=== PATIENT | female | born 1965 | race Caucasian/White ===

== ENCOUNTER → 2022-11-18 09:03 | Outpatient (BNVA) | payer BC, SELFPAY | PROVIDERS: PCP Internal Medicine; Visit Provider Nurse Practitioner Family | DX: G44.85 Primary stabbing headache (principal); I95.9 Hypotension, unspecified; R20.2 Paresthesia of skin; D64.9 Anemia, unspecified; J44.9 Chronic obstructive pulmonary disease, unspecified ==

== ENCOUNTER → 2023-03-04 14:01 | Outpatient (BNVA) | payer BC, SELFPAY | PROVIDERS: Visit Provider Nurse Practitioner Family | DX: G44.85 Primary stabbing headache (principal); I95.9 Hypotension, unspecified; R20.2 Paresthesia of skin; D64.9 Anemia, unspecified; J44.9 Chronic obstructive pulmonary disease, unspecified; G43.709 Chronic migraine without aura, not intractable, without status migrainosus ==

== ENCOUNTER → 2023-06-17 14:02 | Outpatient (BNVA) | payer BC, SELFPAY | PROVIDERS: PCP Internal Medicine; Visit Provider Nurse Practitioner Family | DX: G44.85 Primary stabbing headache (principal); I95.9 Hypotension, unspecified; R20.2 Paresthesia of skin; D64.9 Anemia, unspecified; J44.9 Chronic obstructive pulmonary disease, unspecified; G43.709 Chronic migraine without aura, not intractable, without status migrainosus ==

== ENCOUNTER → 2023-09-16 13:26 | Outpatient (BNVA) | payer OTHER, SELFPAY | PROVIDERS: PCP Internal Medicine; Visit Provider Nurse Practitioner Family ==

== ENCOUNTER → 2024-01-19 09:01 | Outpatient (BNVA) | payer OTHER, SELFPAY | PROVIDERS: PCP Internal Medicine; Visit Provider Nurse Practitioner Family ==

== ENCOUNTER → 2024-08-02 13:12 | Outpatient (BNVA) | payer OTHER, SELFPAY | PROVIDERS: PCP Internal Medicine; Visit Provider Psychiatry & Neurology Neurology | DX: G43.709 Chronic migraine without aura, not intractable, without status migrainosus (principal) | CPT/HCPCS: 64615; 99211; J0585 ==

== ENCOUNTER 2024-11-08 14:52 | Outpatient (AMB) | payer OTHER, SELFPAY ==
--- NOTE | 2024-11-08 15:04 | MHC.OFFVIS ---
Vital Signs 11/08/24 15:06 Height 5 ft 5 in Weight 113 lb BMI 18.8 BP 94/66 Blood Pressure Location Rt brachial Position Sitting Pulse 89 Pulse Source Pulse Oximeter Pulse Oximetry (%) 100 Oxygen Delivery Method Room Air Intake Visit Reasons: BOTOX Intake Note: patient presents for botox injection. pharmacy supplied Allergies bacitracin [From Neosporin ([id number]-ote-pylrn)] Allergy (Unknown, Verified 11/08/24 15:09) Unknown neomycin [From Neosporin (ymb-prh-mzjda)] Allergy (Unknown, Verified 11/08/24 15:09) Unknown polymyxin B [From Neosporin (gia-ibd-pzuwn)] Allergy (Unknown, Verified 11/08/24 15:09) Unknown Sulfa (Sulfonamide Antibiotics) Allergy (Unknown, Verified 11/08/24 15:09) Unknown sulfadiazine Allergy (Unknown, Verified 11/08/24 15:09) Unknown adhesive Adverse Reaction (Unknown, Verified 11/08/24 15:09) Unknown Medication List - Last Reconciled 11/08/24 by Charito Zhou MD albuterol sulfate 90 mcg/actuation 0 mcg inhalation alprazolam 1 mg PO BID PRN 1 day amitriptyline 100 mg PO BEDTIME budesonide-formoterol 160-4.5 mcg/actuation 2 puffs inhalation BID dunaxpwmkk-nfrygfkrogvqh-ooqo 50-300-40 mg caps PO PRN carisoprodol 350 mg PO PRN celecoxib mg PO BID cyclobenzaprine 5 mg PO DAILY PRN cyclosporine 0.05% (Restasis) 1 drp ophthalmic (eye) Q12H diclofenac sodium 75 mg PO BID PRN 30 days escitalopram oxalate 5 mg PO DAILY [hair volume with apple extract PO DAILY] hydrocodone-acetaminophen 5-325 mg 1 tab PO Q4-6H PRN lorazepam 1 mg PO BID PRN magnesium oxide 400 mg PO DAILY melatonin 3 mg PO BEDTIME methocarbamol 750 - 1,500 mg PO TID PRN onabotulinumtoxinA (Botox) 200 units IM ONCE 12 weeks ondansetron 8 mg PO Q8H PRN 30 days ondansetron HCl 4 mg PO BID PRN oxcarbazepine (Trileptal) 150 mg PO BEDTIME 30 days oxycodone 5 mg PO BID PRN pantoprazole 40 mg PO DAILY riboflavin (vitamin B2) 400 mg PO DAILY secukinumab (Cosentyx Pen 300 mg/2 pens () 150 mg subcut Q4W simvastatin 20 mg PO BEDTIME tizanidine (Zanaflex) 4 mg PO DAILY PRN tramadol 50 mg PO BID PRN HPI Comments Details: ? 59y/o female comes for treatment of migraines with botox. How many migraine days prior to botox- 20 days a month How long do the migraines last- 1-2 days Intensity of migrainesevere 8-03/15 ER visits related to migraine- none Effectiveness of botox from last two treatment(s) How many migraine days since receiving treatment: Change? in intensity of migraine?decreased Change in frequency of migraine?decreased Change in use of acute medication for migraine?decreased use Change in quality of life?improved ER visits related to migraine?none Have at least three months elapsed since last treatment -yes ??? Most frequent reported adverse reactions following injection of botox for chronic migraine include neck pain (9%), headache(5%), eyelid ptosis(4%), migraine(4%), muscular weakness(4%), musculuskeletal stiffness(4%), bronchitis(3%), injection site pain (3%), musculoskeletal pain(3%), myalgia(3%), facial paresis(2%), HTN(2%) and muscle spasms(2%) were discussed in detail. A ??? Botulinum toxin typeA 200units Lot no [id number] expiration October 2026 was diluted with 4 cc of normal saline . ??? Muscles injected- ??? Frontalis 4 sites ??? Procerus 1 site ??? Head Banquet Waitress- 2 sites ??? Temporalis- 8 sites ??? Occipitalis- 6 sites ??? Cervical paraspinals- 4 sites ??? Trapezius- 6 sites- units each ??? 5 units each in 31 site ??? Total use- 155units ??? Discarded-45units [facility] Medical History Chronic migraine without aura, not intractable, without status migrainosus Arthritis HLD (hyperlipidemia) Osteoporosis Asthma COPD (chronic obstructive pulmonary disease) Anemia Paresthesias Surgical History H/O left wrist surgery H/O: hysterectomy Hx of cholecystectomy Hx of appendectomy Family History Paternal Aunt Parkinsons disease Father Heart disease Mother Heart disease Hypertension Social History Alcohol intake: current Alcohol intake frequency: holidays/special occasions only Patient Tobacco Use Status: Current everyday Tobacco user Physical Exam Vital Signs: Last Vital Signs Pulse 89 11/08/24 15:06 BP 94/66 11/08/24 15:06 Pulse Ox 100 11/08/24 15:06 Oxygen Delivery Method Room Air 11/08/24 15:06 BMI result Body Mass Index 18.8 Const General: cooperative and no acute distress Orientation/consciousness: patient oriented x3 Resp Effort & Inspection: normal respiratory effort and able to speak in complete sentences Neuro Other: No visible rest or postural tremor. General: patient oriented x3 Cranial nerves: Yes CN's II-XII intact bilaterally Cognition (Neuro): normal cognition Psych Appearance: grossly normal Mental Status: mental status grossly normal Speech and movement: Normal speech and movement present Affect: normal affect Attitude: cooperative Office Procedures Botulinum toxin Injection 85147 - Migraine Procedure code (CPT) selection complete Office Meds onabotulinumtoxinA 200 unit solution for injection Performing Provider: Charito Zhou MD Performing Location: [facility] Administered by: Charito Zhou MD on 11/08/24 15:31 Dose Route Admin Location Dispensed Lot Number Expiration Date [facility] Envelope Fold Operator 155 unit IM 200 units [id number] ALLERGAN/BOTOX Comments: see HPI Assessment & Plan Assessment & Plan (1) Chronic migraine without aura, not intractable, without status migrainosus: Code(s): G43.709 - Chronic migraine without aura, not intractable, without status migrainosus Category: Medical Plan Patient tolerated the procedure well she will call with any side effects Orders: Orders AMB Botulinum toxin Injection Today G43.709 - Chronic migraine without aura, not intractable, without status migrainosus Medications: New onabotulinumtoxinA 200 units IM ONCE 1 ea 0RF Migraine G43.709 - Chronic migraine without aura, not intractable, without status migrainosus Coding Level of Care Code Est Pt Level 1 (26830) Diagnoses Chronic migraine without aura, not intractable, without status migrainosus G43.709 CPT Codes Botox Injection - Botox 3: 03511 - Migraine ([id number])
[2024-11-08 15:06] VITALS: BP 94/66; PULSE 89; O2SAT 100; BMI 18.8
--- OUTSIDE RECORDS SUMMARY | 2024-11-08 16:07 | XMS_ITS | Encounter Summary ---
Author Organization [facility] Address [address] [place] [address] Care Team Providers Care Structural Engineering Project Manager Name Role Phone Augustine Lim DO Primary Care Provider Encounter Details Date Type Department Care Team (Late st Contact Info) Description 07/25/2024 Lab Requisition [facility] Main Lab [address] [facility] [place] [id number] Brittany Candelaria, GOLF TEACHER [address] [place] [phone] Acute vaginitis Social History Tobacco Use Types Packs/Day Years Used Date Smoking Tobacco: Every Day Cigarettes 1 24.3 Started: 07/06/2000 Smokeless Tobacco: Never Alcohol Use Standard Drinks/Week Comments Never 0 (1 standard drink = 0.6 oz pur e alcohol) Comments Unknown Sex and Gender Information Value Date Recorded Sex Assigned at Not on file Legal Sex Female 11:52 AM EST Gender Identity Not on file Sexual Orientation Not on file documented as of this encounter Plan of Treatment Not on file documented as of this encounter Procedures Procedure Name Priority Date/Time Associated Diagnosis Comments VAGINITIS PATHOGENS BY PCR Routine 07/25/2024 12:00 PM EST Acute vaginitis documented in this encounter Results * (ABNORMAL) Vaginitis pathogens molecular study (07/25/2024 12:00 PM EST) Trichomonas vaginalis Negative Negative 07/26/2024 9:35 AM EST [facility] Gardnerella vaginalis Positive(A) Negative 07/26/2024 9:35 AM EST [facility] Gem Species Negative Negative 9:35 AM [facility] Swab Vaginal structure / Unknown 07/25/2024 12:00 PM EST 07/25/2024 2:49 PM EST us Brittany Candelaria GOLF TEACHER LAB MICROBIOLOGY - GENE RAL ORDERABLES Final Result [facility] [address] [place] [address], documented in this encounter Visit Diagnoses Diagnosis Acute vaginitis Unspecified vaginitis and vulvovaginitis documented in this encounter Care Teams Structural Engineering Project Manager Relationship Specialty Start Date End Date Augustine Lim DO [address] [place] [phone] PCP - General Internal Medicine 09/10/18 documented as of this encounter
--- OUTSIDE RECORDS SUMMARY | 2024-11-08 16:07 | XMS_ITS | Clinical Summary ---
Author Organization [facility] Address [address] [place] [address] Care Team Providers Care Materials Scientist Name Role Phone Augustine Lim DO Primary Care Provider [phone] Social History Tobacco Use Types Packs/Day Years Used Date Smoking Tobacco: Never Assessed Sex and Gender Information Value Date Recorded Sex Assigned at Not on file Gender Identity Not on file Sexual Orientation Not on file Job Start Date Occupation Industry Not on file Not on file Not on file Plan of Treatment Health Maintenance Due Date Last Done Comments Hepatitis C Screening 1965 COVID-19 Vaccine (#1) 1963 Depression Screening 1975 Preventative Health Evaluation 1981 DTap / Tdap / Td (1 - Tdap) 1982 Cervical Cancer Screening (P ap Smear) 02/19/1984 Colon Cancer Screening (Colonoscopy) 02/19/2008 Breast Cancer Screening (Mammogram) 2013 Shingrix-Zoster Vaccine (1 of 2) 2013 Influenza Vaccine (#1) 2024 RSV Adult > 60+ Yrs or Pregn ant (1 - 1-dose 75+ series) 2038 Hepatitis B Vaccines Aged Out No long er eligible based on patient's age to complete this topic Pneumococcal Vaccine Aged Out No long er eligible based on patient's age to complete this topic RSV Ped < 20 months Aged Out No longe r eligible based on patient's age to complete this topic Care Teams Materials Scientist Relationship Specialty Start Date End Date Augustine Lim DO [address] [place] [phone] PCP - General Internal Medicine 07/15/16
--- OUTSIDE RECORDS SUMMARY | 2024-11-08 16:07 | XMS_ITS | Continuity of Care Document ---
Author Organization [facility] [address] [place] [address] Phone [phone] Care Team Providers Care Swing Frame Grinder Operator Name Role Phone Augustine Lim M.D. Care Team Information [facility] [phone] Social History Type Date Description Comments Sex Unknown Medical Devices Description No Information Available Encounters Description No Information Available Assessments Description No Information Available Plan of Treatment No Information Available Functional Status Description No Information Available Mental Status Description No Information Available Referrals Description No Information Available
--- OUTSIDE RECORDS SUMMARY | 2024-11-08 16:08 | XMS_ITS | Clinical Summary ---
Author Organization [address] [facility] Address [address] [place] [address] Phone Care Team Providers Care Research Pharmacist Name Role Phone Augustine Lim Primary Care Provider [phone] Surgical History Surgery Date Site/Laterality Comments HYSTERECTOMY PROCEDURE: HISTORICAL HYSTERECTOMY CHOLECYSTECTOMY PROCEDURE: AR LAPAROSCOPY SURG CHOLECYSTECTOMY APPENDECTOMY PROCEDURE: AR APPENDECTOMY COLONOSCOPY PROCEDURE: HISTORICAL COLONOSCOPY Medical History Medical History Date Comments Anxiety state DX:Anxiety state Asthma DX:Asthma Cervical spondylosis without myelopathy DX:Cervical spondylosis without myelopathy Bronchitis DX:Bronchitis Esophageal reflux DX:Esophageal reflux Hyperlipidemia DX:Hyperlipidemi a Family History Medical History Relation Name Comments Coronary artery disease Father Coronary artery disease Mother Relation Name Status Comments Father Mother Social History Tobacco Use Types Packs/Day Years [...] on file Sexual Orientation Not on file Obstetrics History Last Filed Vital Signs Vital Sign Reading Time Taken Comments Blood Pressure 105/78 03/26/2023 7:50 AM EDT Sit ting L Arm Pulse 89 03/26/2023 7:50 AM EDT Temperature - - Respiratory Rate - - Oxygen Saturation - - Inhaled Oxygen Concentration - - Weight 48.5 kg (107 lb) 03/26/2023 7:50 AM EDT Height 165.1 cm (5' 5 ) 03/26/2023 7:50 AM EDT Body Mass Index 17.81 03/26/2023 7:50 AM EDT Plan of Treatment Health Maintenance Due Date Last Done Comments Breast Cancer Screening 1965 Pneumococcal Vaccine: 50+ Years (1 of 2 - PCV) 1982 Pneumococcal Vaccine: Pediatrics (0 to 5 Years) and At-Risk Patients (6 to 64 Years) (1 of 2 - PCV) 1982 Cervical Cancer Screening: P ap Smear 02/19/1984 Zoster Vaccines (1 of 2) 2013 Colorectal Cancer Screening: Colonoscopy 06/14/2022 Depression Screening 06/14/2022 HIV Screening 06/14/2022 Hepatitis C Screening 06/14/2022 Osteoporosis Screening (Bone Density Screening) 06/14/2022 Social Influencers of Health Screening 06/14/2022 RSV Immunization Adult Patients (1 - Risk 60-74 years 1-dose series) 2023 COVID-19 Vaccine (4 - 2023-2 5 season) 2024 10/27/2021, 02/25/2021, 02/04/2021 Influenza Vaccine (Season Ended) 2025 04/15/2021, 05/02/2020, 03/19/2017 Cholesterol Screening (Lipid Panel) 07/25/2029 07/25/2024 DTaP,Tdap,and Td Vaccines (2 - Td or Tdap) 09/17/2031 09/16/2021 HIB Vaccines Aged Out No longer eligi ble based on patient's age to complete this topic HPV Vaccines Aged Out No longer eligi ble based on patient's age to complete this topic Hepatitis A Vaccines Aged Out No long er eligible based on patient's age to complete this topic Hepatitis B Vaccines Aged Out No long er eligible based on patient's age to complete this topic IPV Vaccines Aged Out No longer eligi ble based on patient's age to complete this topic MMR Vaccines Aged Out No longer eligi ble based on patient's age to complete this topic Meningococcal ACWY Vaccine Aged Out N o longer eligible based on patient's age to complete this topic Meningococcal B Vaccine Aged Out No l onger eligible based on patient's age to complete this topic RSV Immunization Patients Under 20 months Aged Out No longer eligible b ased on patient's age to complete this topic Varicella Vaccines Aged Out No longer eligible based on patient's age to complete this topic Procedures Procedure Name Priority Date/Time Associated Diagnosis Comments LIPID PANEL WITH REFLEX TO DIRECT LDL Routine 07/25/2024 12:41 PM EST Hyperlipemia Vanishing lung (CMS/HCC V24, CMS/HCC V28) Senile osteoporosis Esophageal reflux from Last 3 Months or Most Recently Relevant to Health Maintenance Results * (ABNORMAL) Lipid panel with reflex to direct LDL (07/25/2024 12:41 PM EST) Cholesterol 204(H) 0 - 200 mg/dL LAB CHEMISTRY METHOD 07/25/2024 4:[address] [facility] Triglycerides 116 0 - 150 mg/dL LAB CHEMISTRY METHOD 07/25/2024 4:24 PM [facility] HDL 61 >=40 mg/dL LAB CHEMISTRY METHOD 07/25/2024 4:[address] [facility] LDL Calculated 120(H) 0 - 100 mg/dL LAB CHEMISTRY METHOD 07/25/2024 4:[address] [facility] VLDL Cholesterol Teto 23.2 mg/dL LAB CHEMISTRY METHOD 07/25/2024 4:[address] [facility] Non HDL Chol. (LDL+VLDL) 143 <145 mg/dL LAB CHEMISTRY METHOD 07/25/2024 4:[address] [facility] Chol/HDL Ratio 3.3 0.0 - 4.4 LAB CHEMISTRY METHOD 07/25/2024 4:[address] [facility] Blood Venous blood specimen / Unknown Venipuncture / Unknown 07/25/2024 12:41 PM EST 07/25/2024 12:41 PM EST us Brittany Candelaria NP LAB BLOOD ORDERABLES Fi nal Result [facility] [address] [place] [address], [place] [phone] from Last 3 Months or Most Recently Relevant to Health Maintenance Insurance [facility] [place] [id number] Care Teams Research Pharmacist Relationship Specialty Start Date End Date Augustine Lim DO [address] [place] [phone] PCP - General Internal Medicine 09/10/18
== END 2024-11-08 15:45 | disposition home or self-care (01) ==
LOC: HO.HSMS 14:55
PROVIDERS: PCP Internal Medicine; Visit Provider Psychiatry & Neurology Neurology
DX: G43.709 Chronic migraine without aura, not intractable, without status migrainosus (principal)
CPT/HCPCS: 64615

== ENCOUNTER → 2024-11-08 14:52 | Outpatient (BNVA) | payer OTHER, SELFPAY | PROVIDERS: PCP Internal Medicine; Visit Provider Psychiatry & Neurology Neurology | DX: G43.709 Chronic migraine without aura, not intractable, without status migrainosus (principal) | CPT/HCPCS: 64615; 99211; J0585 ==

== ENCOUNTER 2025-01-31 10:51 | Outpatient (AMB) | payer OTHER, SELFPAY ==
--- NOTE | 2025-01-31 10:58 | MHC.OFFVIS ---
Vital Signs 01/31/25 11:08 Height 5 ft 5 in Weight 111 lb 4 oz BMI 18.5 BP 90/68 Blood Pressure Location Rt brachial Position Sitting Pulse 103 H Pulse Source Pulse Oximeter Pulse Oximetry (%) 100 Oxygen Delivery Method Room Air Intake Visit Reasons: BOTOX Tape Cutting Machine Operator Required: No Accompanied by: Self / Same As Patient Allergies bacitracin (From Neosporin (aca-prm-nakgc)) Allergy (Unknown, Verified 11/08/24 15:09) Unknown neomycin (From Neosporin (bqg-hug-mlydf)) Allergy (Unknown, Verified 11/08/24 15:09) Unknown polymyxin B (From Neosporin (zaq-xnb-vgpru)) Allergy (Unknown, Verified 11/08/24 15:09) Unknown Sulfa (Sulfonamide Antibiotics) Allergy (Unknown, Verified 11/08/24 15:09) Unknown sulfadiazine Allergy (Unknown, Verified 11/08/24 15:09) Unknown adhesive Adverse Reaction (Unknown, Verified 11/08/24 15:09) Unknown Medication List - Last Reconciled 01/31/25 by Charito Zhou MD albuterol sulfate 90 mcg/actuation 0 mcg inhalation alprazolam 1 mg PO BID PRN 1 day amitriptyline 100 mg PO BEDTIME budesonide-formoterol 160-4.5 mcg/actuation 2 puffs inhalation BID endsovmgye-zatwvdrscvlpa-qfja 50-300-40 mg caps PO PRN carisoprodol 350 mg PO PRN celecoxib mg PO BID cyclobenzaprine 5 mg PO DAILY PRN cyclosporine 0.05% (Restasis) 1 drp ophthalmic (eye) Q12H diclofenac sodium 75 mg PO BID PRN 30 days escitalopram oxalate 5 mg PO DAILY [hair volume with apple extract PO DAILY] hydrocodone-acetaminophen 5-325 mg 1 tab PO Q4-6H PRN lorazepam 1 mg PO BID PRN magnesium oxide 400 mg PO DAILY melatonin 3 mg PO BEDTIME methocarbamol 750 - 1,500 mg PO TID PRN onabotulinumtoxinA (Botox) 200 units IM ONCE 12 weeks ondansetron 8 mg PO Q8H PRN 30 days ondansetron HCl 4 mg PO BID PRN oxcarbazepine (Trileptal) 150 mg PO BEDTIME 30 days oxycodone 5 mg PO BID PRN pantoprazole 40 mg PO DAILY riboflavin (vitamin B2) 400 mg PO DAILY secukinumab (Cosentyx Pen 300 mg/2 pens () 150 mg subcut Q4W simvastatin 20 mg PO BEDTIME tizanidine (Zanaflex) 4 mg PO DAILY PRN tramadol 50 mg PO BID PRN HPI Comments Details: ? 59y/o female comes for treatment of migraines with botox. How many migraine days prior to botox- 20 days a month How long do the migraines last- 1-2 days Intensity of migrainesevere 8-03/15 ER visits related to migraine- none Effectiveness of botox from last two treatment(s) How many migraine days since receiving treatment: Change? in intensity of migraine?decreased Change in frequency of migraine?decreased Change in use of acute medication for migraine?decreased use Change in quality of life?improved ER visits related to migraine?none Have at least three months elapsed since last treatment -yes ??? Most frequent reported adverse reactions following injection of botox for chronic migraine include neck pain (9%), headache(5%), eyelid ptosis(4%), migraine(4%), muscular weakness(4%), musculuskeletal stiffness(4%), bronchitis(3%), injection site pain (3%), musculoskeletal pain(3%), myalgia(3%), facial paresis(2%), HTN(2%) and muscle spasms(2%) were discussed in detail. A ??? Botulinum toxin typeA 200units Lot no [id number] expiration Aug 2027 was diluted with 4 cc of normal saline . ??? Muscles injected- ??? Frontalis 4 sites ??? Procerus 1 site ??? Craps Manager- 2 sites ??? Temporalis- 8 sites ??? Occipitalis- 6 sites ??? Cervical paraspinals- 4 sites ??? Trapezius- 6 sites- units each ??? 5 units each in 31 site ??? Total use- 155units ??? Discarded-45units [facility] Medical History Chronic migraine without aura, not intractable, without status migrainosus Arthritis HLD (hyperlipidemia) Osteoporosis Asthma COPD (chronic obstructive pulmonary disease) Anemia Paresthesias Surgical History H/O left wrist surgery H/O: hysterectomy Hx of cholecystectomy Hx of appendectomy Family History Paternal Aunt Parkinsons disease Father Heart disease Mother Heart disease Hypertension Social History Alcohol intake: current Alcohol intake frequency: holidays/special occasions only Patient Tobacco Use Status: Current everyday Tobacco user Physical Exam Vital Signs: Last Vital Signs Pulse 103 H 01/31/25 11:08 BP 90/68 01/31/25 11:08 Pulse Ox 100 01/31/25 11:08 Oxygen Delivery Method Room Air 01/31/25 11:08 BMI result Body Mass Index 18.5 Const General: cooperative and no acute distress Orientation/consciousness: patient oriented x3 Resp Effort & Inspection: normal respiratory effort and able to speak in complete sentences Neuro Other: No visible rest or postural tremor. General: patient oriented x3 Cranial nerves: Yes CN's II-XII intact bilaterally Cognition (Neuro): normal cognition Psych Appearance: grossly normal Mental Status: mental status grossly normal Speech and movement: Normal speech and movement present Affect: normal affect Attitude: cooperative Office Procedures Botulinum toxin Injection 56401 - Migraine Procedure code (CPT) selection complete Office Meds onabotulinumtoxinA 200 unit solution for injection Performing Provider: Charito Zhou MD Performing Location: [facility] Administered by: Charito Zhou MD on 01/31/25 13:21 Dose Route Admin Location Dispensed Lot Number Expiration Date [facility] Mobile Application Tester 155 unit subcut 200 units [id number] ALLERGAN/BOTOX Total Dispensed Waste 200 units 22.5 % Comments: see HPI Assessment & Plan Assessment & Plan (1) Chronic migraine without aura, not intractable, without status migrainosus: Code(s): G43.709 - Chronic migraine without aura, not intractable, without status migrainosus Category: Medical Plan Patient tolerated the procedure well she will call with any side effects Orders: Orders AMB Botulinum toxin Injection Today G43.709 - Chronic migraine without aura, not intractable, without status migrainosus Coding Level of Care Code Est Pt Level 1 (76410) Diagnoses Chronic migraine without aura, not intractable, without status migrainosus G43.709 CPT Codes Botox Injection - Botox 3: 91395 - Migraine ([id number])
[2025-01-31 11:08] VITALS: BP 90/68; PULSE 103; O2SAT 100; BMI 18.5
== END 2025-01-31 11:37 | disposition home or self-care (01) ==
LOC: HO.HSMS 10:52
PROVIDERS: PCP Internal Medicine; Visit Provider Psychiatry & Neurology Neurology
DX: G43.709 Chronic migraine without aura, not intractable, without status migrainosus (principal)
CPT/HCPCS: 64615

== ENCOUNTER → 2025-01-31 10:51 | Outpatient (BNVA) | payer OTHER, SELFPAY | PROVIDERS: PCP Internal Medicine; Visit Provider Psychiatry & Neurology Neurology | DX: G43.709 Chronic migraine without aura, not intractable, without status migrainosus (principal); E78.5 Hyperlipidemia, unspecified; M81.0 Age-related osteoporosis without current pathological fracture; J44.9 Chronic obstructive pulmonary disease, unspecified; D64.9 Anemia, unspecified; R20.2 Paresthesia of skin; F17.210 Nicotine dependence, cigarettes, uncomplicated | CPT/HCPCS: 64615; 99211; J0585 ==

== ENCOUNTER 2025-02-01 13:23 | Outpatient (AMB) | payer OTHER, SELFPAY ==
--- NOTE | 2025-02-01 13:31 | MHC.OFFVIS ---
Vital Signs 02/01/25 13:43 Height 5 ft 5 in BP 104/76 Blood Pressure Location Lt brachial Position Sitting Pulse 90 Pulse Source Pulse Oximeter Pulse Oximetry (%) 96 Oxygen Delivery Method Room Air Intake Visit Reasons: Follow up 6mo Intake Note: Patient presents follow up migraine medication. Labs in chart. Since receiving Botox she is getting about 2-3 Migraines per month.(depending on weather). Fiorocet helps when does get them. Accompanied by: Self / Same As Patient Allergies bacitracin (From Neosporin (uao-lnq-hahyh)) Allergy (Unknown, Verified 02/01/25 13:44) Unknown neomycin (From Neosporin (ioi-jnr-iabgx)) Allergy (Unknown, Verified 02/01/25 13:44) Unknown polymyxin B (From Neosporin (ztr-jvh-jnuma)) Allergy (Unknown, Verified 02/01/25 13:44) Unknown Sulfa (Sulfonamide Antibiotics) Allergy (Unknown, Verified 02/01/25 13:44) Unknown sulfadiazine Allergy (Unknown, Verified 02/01/25 13:44) Unknown adhesive Adverse Reaction (Unknown, Verified 02/01/25 13:44) Unknown Medication List - Last Reconciled 02/01/25 by DAVID Alonzo albuterol sulfate 90 mcg/actuation 0 mcg inhalation alprazolam 1 mg PO BID PRN 1 day amitriptyline 100 mg PO BEDTIME budesonide-formoterol 160-4.5 mcg/actuation 2 puffs inhalation BID kqznevqwjk-dtqdfdywskhna-mwvc 50-300-40 mg caps PO PRN carisoprodol 350 mg PO PRN celecoxib mg PO BID cyclobenzaprine 5 mg PO DAILY PRN cyclosporine 0.05% (Restasis) 1 drp ophthalmic (eye) Q12H diclofenac sodium 75 mg PO BID PRN 30 days escitalopram oxalate 5 mg PO DAILY [hair volume with apple extract PO DAILY] hydrocodone-acetaminophen 5-325 mg 1 tab PO Q4-6H PRN lorazepam 1 mg PO BID PRN magnesium oxide 400 mg PO DAILY melatonin 3 mg PO BEDTIME methocarbamol 750 - 1,500 mg PO TID PRN onabotulinumtoxinA (Botox) 200 units IM ONCE 12 weeks ondansetron 8 mg PO Q8H PRN 30 days ondansetron HCl 4 mg PO BID PRN oxcarbazepine (Trileptal) 150 mg PO BEDTIME 30 days oxycodone 5 mg PO BID PRN pantoprazole 40 mg PO DAILY riboflavin (vitamin B2) 400 mg PO DAILY secukinumab (Cosentyx Pen 300 mg/2 pens () 150 mg subcut Q4W simvastatin 20 mg PO BEDTIME tizanidine (Zanaflex) 4 mg PO DAILY PRN tramadol 50 mg PO BID PRN HPI Comments Details: 59-yr-old female presents for f/u visit of migraine and stabbing headache. Pt denies any significant interval medical changes. Her neck pain is somewhat better- just had cervical injections through [facility] last week. Tremor is better, but when she has a breakthrough episode the tremor will be strong for a few hours to a 1/2-1 day. Continues to be f/b PS&S for management for management of her chronic neck pain. Pt reports that the Botox for her chronic migraine has been very helpful. Pt reports she has about 3 migraine days in the last month. Continues to have episodes of crown of head allodynia. Uses fioricet prn, w/ positive effect. Ice on her head can help and cool pack on her eyes does help. She reports the stabbing head pains, now varies, more so on the left side- are a bit better. She tried the trileptal- caused increased headaches and shakiness. Baseline migraine headache characteristics: Top of head, pressure. A/w photophobia, phonophobia, osmophobia. N/V, dizziness, may see black spots. No paresthesias, focal weakness, autonomic features. She is more prone to migraine in the spring and fall, as well as barometric changes. [facility] Medical History Chronic migraine without aura, not intractable, without status migrainosus Arthritis HLD (hyperlipidemia) Osteoporosis Asthma COPD (chronic obstructive pulmonary disease) Anemia Paresthesias Surgical History H/O left wrist surgery H/O: hysterectomy Hx of cholecystectomy Hx of appendectomy Family History Paternal Aunt Parkinsons disease Father Heart disease Mother Heart disease Hypertension Social History Alcohol intake: current Alcohol intake frequency: holidays/special occasions only Patient Tobacco Use Status: Current everyday Tobacco user Physical Exam Vital Signs: Last Vital Signs Pulse 90 02/01/25 13:43 BP 104/76 02/01/25 13:43 Pulse Ox 96 02/01/25 13:43 Oxygen Delivery Method Room Air 02/01/25 13:43 Const General: cooperative and no acute distress Orientation/consciousness: patient oriented x3 Resp Effort & Inspection: normal respiratory effort and able to speak in complete sentences Neuro Other: No visible rest or postural tremor. General: patient oriented x3 Cranial nerves: Yes CN's II-XII intact bilaterally Cognition (Neuro): normal cognition Psych Appearance: grossly normal Mental Status: mental status grossly normal Speech and movement: Normal speech and movement present Affect: normal affect Attitude: cooperative Assessment & Plan Assessment & Plan (1) Stabbing headache: Comment: w/o autonomic s/s Code(s): G44.85 - Primary stabbing headache Category: Medical (2) Tremors of nervous system: Code(s): R25.1 - Tremor, unspecified Category: Medical (3) Chronic migraine without aura, not intractable, without status migrainosus: Code(s): G43.709 - Chronic migraine without aura, not intractable, without status migrainosus Category: Medical Plan For general headache management: Pt may benefit from trying a migraine ice/cooling cap. Try increasing water aerobic type exercises- pt does has a boat and has access to water. For stabbing headache: Continue to hold previous order for Brain/head MRA- was deneid by insurance. Discontinue oxcarbazepine 150 mg q.h.s- not tolerated- caused tremor and increased headache. For acute migraine headache treatment: May continue Fioricet prn for now- pt asks for longer supply as she has 2 houses- continue to use sparingly. Continue Zofran to 8mg ODT prn N?V Previous acute migraine medication trials: Sumatriptan, Zolmitriptan, Eletriptan- caused racing heart rate. Acute migraine medication contraindications: None at this time. Future considerations- gepant- however would need to wean off Fioricet. ? For migraine headache prevention medication: Continue Riboflavin 400mg qam Continue Magnesium 400mg qhs Continue Amitriptyline 100mg qhs. Continue Botox 155 units IM q 12 weeks (CPT 17394), as pt is already having good clinical effect. Previous migraine prevention medication trials: Emgality- x's 2 months- had 2 week post-injection headache. Topiramate, Propranolol, Depakote, Gabapentin- ineffective. Duloxetine- not tolerated. Nortriptyline worsened headache. Migraine prevention medication contraindications: Would avoid Aimovig d/t h/o constipation. Monitor tremors clinically for now. ? F/u in 6 months or sooner prn. Medications: Changed From gvykfzljpg-xxwcuvpwzhpiv-xoxg 50-300-40 mg PO PRN To tbxtcmxivo-znnqdowxvquiv-qekk 50-300-40 mg 1 cap PO Q4H PRN 90 caps 0RF tension headache 90 days Discontinued oxcarbazepine (Trileptal) Discontinued Reason: Doctor's Order 150 mg PO BEDTIME 30 days 30 tabs 3RF Coding Level of Care Code Est Pt Level 4 (51260) Diagnoses Stabbing headache G44.85 Tremors of nervous system R25.1 Chronic migraine without aura, not intractable, without status migrainosus G43.709
[2025-02-01 13:43] VITALS: BP 104/76; PULSE 90; O2SAT 96
--- OUTSIDE RECORDS SUMMARY | 2025-02-01 13:56 | XMS_ITS | Clinical Summary ---
Author Organization [facility] Address [address] [place] [address] Care Team Providers Care Supervisor Jewelry Department Name Role Phone Augustine Lim DO Primary Care Provider [phone] Social History Tobacco Use Types Packs/Day Years [...] (1 of 2) 2013 Influenza Vaccine (#1) 2025 RSV Adult > 60+ Yrs or Pregn [...] age to complete this topic Care Teams Supervisor Jewelry Department Relationship Specialty Start Date End Date Augustine Lim DO [address] [place] [id number] PCP - General Internal Medicine 07/15/16
--- OUTSIDE RECORDS SUMMARY | 2025-02-01 13:56 | XMS_ITS | Continuity of Care Document ---
Author Organization [facility] [address] [place] [address] Phone [phone] Care Team Providers Care Military Source Operations Specialist Name Role Phone Augustine Lim M.D. Care Team Information [facility] [phone] Social History Type Date Description Comments Sex Female Sex Unknown Medical Devices Description No Information Available Encounters Description No Information Available Assessments Description No Information Available Plan of Treatment No Information Available Functional Status Description No Information Available Mental Status Description No Information Available Referrals Description No Information Available
--- OUTSIDE RECORDS SUMMARY | 2025-02-01 13:56 | XMS_ITS | Encounter Summary ---
Author Organization [facility] Address [address] [place] [address] Care Team Providers Care Duct Layer Supervisor Name Role Phone Augustine Lim DO Primary Care Provider [phone] Encounter Details Date Type Department Care Team (Late st Contact Info) Description 07/25/2024 Lab Requisition [facility] [address] [place] [phone] Brittany Candelaria, PRIVATE MORTGAGE BANKER [employer] [address] [place] [phone] Acute vaginitis Social History Tobacco Use Types Packs/Day Years Used Date Smoking Tobacco: Every Day Cigarettes 1 24.6 Started: 07/06/2000 Smokeless Tobacco: Never Alcohol Use [...] vaginalis Negative Negative 07/26/2024 9:35 AM EST [facility] Gardnerella vaginalis Positive(A) Negative 07/26/2024 9:35 AM EST [facility] Gem Species Negative Negative 9:35 AM [facility] Swab Vaginal structure / Unknown 07/25/2024 12:00 PM EST 07/25/2024 2:49 PM EST us Brittany Candelaria [employer] LAB MICROBIOLOGY - GENE RAL ORDERABLES Final Result [facility] [address] [place] [address], documented in this encounter Visit Diagnoses Diagnosis Acute vaginitis Unspecified vaginitis and vulvovaginitis documented in this encounter Care Teams Duct Layer Supervisor Relationship Specialty Start Date End Date Augustine Lim DO [address] [place] [phone] PCP - General Internal Medicine 09/10/18 documented as of this encounter
--- OUTSIDE RECORDS SUMMARY | 2025-02-01 13:56 | XMS_ITS ---
Author Name [facility] Organization Unknown Care Team Organization Name Specialty Phone Email Start Date End Da te [facility] Jeromy Rodriguez Primary Care 05/13/2022 02/22/2024
== END 2025-02-01 14:26 | disposition home or self-care (01) ==
LOC: HO.HSMS 13:24
PROVIDERS: PCP Internal Medicine; Visit Provider Nurse Practitioner Family
DX: G44.85 Primary stabbing headache (principal); R25.1 Tremor, unspecified; G43.709 Chronic migraine without aura, not intractable, without status migrainosus
CPT/HCPCS: 99214

== ENCOUNTER 2025-04-25 10:01 | Outpatient (AMB) | payer OTHER, SELFPAY ==
--- NOTE | 2025-04-25 10:02 | MHC.OFFVIS ---
Vital Signs 04/25/25 10:03 Height 5 ft 5 in Weight 108 lb 2 oz BMI 18.0 BP 118/80 Blood Pressure Location Rt brachial Position Sitting Pulse 94 Pulse Source Pulse Oximeter Pulse Oximetry (%) 97 Oxygen Delivery Method Room Air Intake Visit Reasons: 3mon Botox f/u Intake Note: Botox Epitaxial Reactor Operator Required: No Accompanied by: Self / Same As Patient Allergies bacitracin (From Neosporin (ife-ffk-wljmy)) Allergy (Unknown, Verified 04/25/25 10:02) Unknown neomycin (From Neosporin (eat-mma-qxzdy)) Allergy (Unknown, Verified 04/25/25 10:02) Unknown polymyxin B (From Neosporin (usj-giz-cteft)) Allergy (Unknown, Verified 04/25/25 10:02) Unknown Sulfa (Sulfonamide Antibiotics) Allergy (Unknown, Verified 04/25/25 10:02) Unknown sulfadiazine Allergy (Unknown, Verified 04/25/25 10:02) Unknown adhesive Adverse Reaction (Unknown, Verified 04/25/25 10:02) Unknown Medication List - Last Reconciled 04/25/25 by Charito Zhou MD albuterol sulfate 90 mcg/actuation 0 mcg inhalation alprazolam 1 mg PO BID PRN 1 day amitriptyline 100 mg PO BEDTIME budesonide-formoterol 160-4.5 mcg/actuation 2 puffs inhalation BID bupropion HCl XL 150 mg PO QAM tlmkicrgmq-hondtkutcahqr-siih 50-300-40 mg 1 cap PO Q4H PRN 90 days carisoprodol 350 mg PO PRN celecoxib mg PO BID cyclobenzaprine 5 mg PO DAILY PRN cyclosporine 0.05% (Restasis) 1 drp ophthalmic (eye) Q12H diclofenac sodium 75 mg PO BID PRN 30 days escitalopram oxalate 5 mg PO DAILY hydrocodone-acetaminophen 5-325 mg 1 tab PO Q4-6H PRN lorazepam 1 mg PO BID PRN magnesium oxide 400 mg PO DAILY melatonin 3 mg PO BEDTIME methocarbamol 750 - 1,500 mg PO TID PRN onabotulinumtoxinA (Botox) 200 units IM ONCE 12 weeks ondansetron HCl 4 mg PO BID PRN oxycodone 5 mg PO BID PRN pantoprazole 40 mg PO DAILY riboflavin (vitamin B2) 400 mg PO DAILY secukinumab (Cosentyx Pen 300 mg/2 pens () 150 mg subcut Q4W simvastatin 20 mg PO BEDTIME tizanidine (Zanaflex) 4 mg PO DAILY PRN tramadol 50 mg PO BID PRN HPI Comments Details: ? 60y/o female comes for treatment of migraines with botox. How many migraine days prior to botox- 20 days a month How long do the migraines last- 1-2 days Intensity of migrainesevere 8-03/15 ER visits related to migraine- none Effectiveness of botox from last two treatment(s) How many migraine days since receiving treatment: Change? in intensity of migraine?decreased Change in frequency of migraine?decreased Change in use of acute medication for migraine?decreased use Change in quality of life?improved ER visits related to migraine?none Have at least three months elapsed since last treatment -yes ??? Most frequent reported adverse reactions following injection of botox for chronic migraine include neck pain (9%), headache(5%), eyelid ptosis(4%), migraine(4%), muscular weakness(4%), musculuskeletal stiffness(4%), bronchitis(3%), injection site pain (3%), musculoskeletal pain(3%), myalgia(3%), facial paresis(2%), HTN(2%) and muscle spasms(2%) were discussed in detail. ??? Botulinum toxin typeA 200units Lot no [id number] expiration Jun 2027 was diluted with 4 cc of normal saline . ??? Muscles injected- ??? Frontalis 4 sites ??? Procerus 1 site ??? Tool Grinding Machine Operator- 2 sites ??? Temporalis- 8 sites ??? Occipitalis- 6 sites ??? Cervical paraspinals- 4 sites ??? Trapezius- 6 sites- units each ??? 5 units each in 31 site ??? Total use- 155units ??? Discarded-45units [facility] Medical History Chronic migraine without aura, not intractable, without status migrainosus Arthritis HLD (hyperlipidemia) Osteoporosis Asthma COPD (chronic obstructive pulmonary disease) Anemia Paresthesias Surgical History H/O left wrist surgery H/O: hysterectomy Hx of cholecystectomy Hx of appendectomy Family History Paternal Aunt Parkinsons disease Father Heart disease Mother Heart disease Hypertension Social History Alcohol intake: current Alcohol intake frequency: holidays/special occasions only Patient Tobacco Use Status: Current everyday Tobacco user Physical Exam Vital Signs: Last Vital Signs Pulse 94 04/25/25 10:03 BP 118/80 04/25/25 10:03 Pulse Ox 97 04/25/25 10:03 Oxygen Delivery Method Room Air 04/25/25 10:03 BMI result Body Mass Index 18.0 Const General: cooperative and no acute distress Orientation/consciousness: patient oriented x3 Resp Effort & Inspection: normal respiratory effort and able to speak in complete sentences Neuro Other: No visible rest or postural tremor. General: patient oriented x3 Cranial nerves: Yes CN's II-XII intact bilaterally Cognition (Neuro): normal cognition Psych Appearance: grossly normal Mental Status: mental status grossly normal Speech and movement: Normal speech and movement present Affect: normal affect Attitude: cooperative Office Procedures Botulinum toxin Injection 43805 - Migraine Procedure code (CPT) selection complete Office Meds onabotulinumtoxinA 200 unit solution for injection Performing Provider: Charito Zhou MD Performing Location: [facility] Administered by: Charito Zhou MD on 04/25/25 10:32 Dose Route Admin Location Dispensed Lot Number Expiration Date [facility] Professional Benefits Sales Consultant 185 unit subcut 200 units [id number] ALLERGAN/BOTOX Total Dispensed Waste 200 units 7.5 % Comments: see HPI Assessment & Plan Assessment & Plan (1) Chronic migraine without aura, not intractable, without status migrainosus: Code(s): G43.709 - Chronic migraine without aura, not intractable, without status migrainosus Category: Medical Plan Patient tolerated the procedure well she will call with any side effects Orders: Orders AMB Botulinum toxin Injection Today G43.709 - Chronic migraine without aura, not intractable, without status migrainosus Coding Level of Care Code Est Pt Level 1 (95209) Diagnoses Chronic migraine without aura, not intractable, without status migrainosus G43.709 CPT Codes Botox Injection - Botox 3: 87514 - Migraine ([id number])
[2025-04-25 10:03] VITALS: BP 118/80; PULSE 94; O2SAT 97; BMI 18.0
--- OUTSIDE RECORDS SUMMARY | 2025-04-25 11:39 | XMS_ITS | Continuity of Care Document ---
Author Organization [facility] [address] [place] [address] Phone [phone] Care Team Providers Care Outdoor Power Equipment Mechanic Name Role Phone Augustine Lim M.D. Care Team Information [facility] [phone] Social History Type Date Description Comments Sex Female Sex Unknown Medical Devices Description No Information Available Encounters Description No Information Available Assessments Description No Information Available Plan of Treatment No Information Available Functional Status Description No Information Available Mental Status Description No Information Available Referrals Description No Information Available
--- OUTSIDE RECORDS SUMMARY | 2025-04-25 11:39 | XMS_ITS | Clinical Summary ---
Author Organization [facility] Address [address] [place] [address] Care Team Providers Care Plastic Roller Name Role Phone Augustine Lim DO Primary Care Provider [phone] Social History Tobacco Use Types Packs/Day Years [...] age to complete this topic Care Teams Plastic Roller Relationship Specialty Start Date End Date Augustine Lim DO [address] [place] [phone] PCP - General Internal Medicine 07/15/16
== END 2025-04-25 10:24 | disposition home or self-care (01) ==
LOC: HO.HSMS 10:01
PROVIDERS: PCP Internal Medicine; Visit Provider Psychiatry & Neurology Neurology
DX: G43.709 Chronic migraine without aura, not intractable, without status migrainosus (principal)
CPT/HCPCS: 64615; 99499

== ENCOUNTER → 2025-04-25 10:01 | Outpatient (BNVA) | payer OTHER, SELFPAY | PROVIDERS: PCP Internal Medicine; Visit Provider Psychiatry & Neurology Neurology | DX: G43.709 Chronic migraine without aura, not intractable, without status migrainosus (principal) | CPT/HCPCS: 64615; J0585 ==